=== PATIENT | female | born 1980 | race Caucasian/White ===

== ENCOUNTER → 2016-04-02 | Outpatient (CLI) | payer BC ==
[~2016-04-02] MED LIST: ACHD5005 PO; BIRTH CONTROL; DCS100C PO; HYDR1TAB75 PO; IBP800T PO; NAPR-243 PO; PRM25T PO; SPRINTEC 28; SPRINTEC PO; TRM50T PO
== END ==
LOC: PREOP 05:58
PROVIDERS: ATTEND Internal Medicine
DX: Z01.818 Encounter for other preprocedural examination (principal); K62.5 Hemorrhage of anus and rectum

== ENCOUNTER 2016-04-04 06:56 | Day surgery (SDC) | payer BC ==
[~2016-04-04] VITALS: Ht 152.4 cm; Wt 68.0 kg
[2016-04-04] MEDS ORDERED: NS IV 1000 ML 1,000 ML IV STA (07:13)
[2016-04-04] MEDS ORDERED: proPOfol 200 MG/20 ML (DIPRIVAN) VIAL IV ONE (07:18)
[2016-04-04] MEDS ORDERED: MIDAZOLAM 2 MG/2 ML (VERSED) VIAL ONE (07:19)
[2016-04-04] MEDS ORDERED: NS IV 1000 ML 1,000 ML ONE (07:25)
--- NOTE | 2016-04-04 07:26 | HISTORY AND PHYSICAL ---
DATE OF ADMISSION: 04/04/2016 DICTATING PHYSICIAN: Dr. Santa Ms. Suarez is a 35-year-old white female referred by Dr. Antonio for consideration for colonoscopy. The patient had been doing relatively well up until 7 days ago when she noted progressive right mid quadrant abdominal pain, it was colicky in nature and it has been present intermittently for the past 7 days. She denies chills, fever, diarrhea or constipation. She has had some intermittent abdominal distention. There is a family history for early colon cancer in this case being her father, who from colon cancer at the age of 49. She had undergone colonoscopy at the age of 27 and it was recommended she again undergo colonoscopy 5 years later. She has been taking p.r.n. ibuprofen that helps a little. She saw Dr. Antonio as she had had a past history of endometriosis. On his evaluation, he did not believe that was a contributing factor. He did obtain a CBC, a chemistry panel and a sedimentation rate that revealed no significant abnormalities and were reviewed by this examiner. PAST SURGICAL HISTORY: Significant for: 1. Total abdominal hysterectomy and oophorectomy. 2. Appendectomy. 3. Cholecystectomy. SOCIAL HISTORY: She works at [employer], one of the local [employer] with no smoking history and only rare alcohol intake. FAMILY HISTORY: Other than her father's colon cancer, her grandfather had a stomach tumor and at the age of 85. She had one uncle who was diagnosed with gastric cancer, underwent surgery at the age of 57 and is still living in his 60s. She is not aware of any other family history for malignancy. She has had no travel out of [place] and no one else has been ill that she has been around. PHYSICAL EXAMINATION: Reveals an anxious appearing white female in mild distress. HEENT EXAMINATION: Unremarkable. Sclera nonicteric. NECK: Revealed no JVD, adenopathy or bruits. CHEST: Clear. CV: Reveals a regular rate and rhythm without murmur, S3 or S4. Blood pressure is 106/66 with a heart rate of 80 and regular and temperature was 98.9. ABDOMEN: Nondistended, soft, supple. There is a right mid quadrant abdominal pain and left lower quadrant abdominal pain to palpation. There is some mild guarding in the right mid quadrant. Bowel sounds are positive. No mass or organomegaly is appreciated. ASSESSMENT/PLAN: Abdominal pain, does somewhat follow the typical outline of the colon raising the possibility of colitis. I should add that she has not had any recent antibiotic exposure. She does report nausea as well but with history of appendectomy, cholecystectomy and total abdominal hysterectomy with oophorectomy. She is advised to continue hormonal replacement. We will initiate Levaquin 500 mg daily and Compazine 10 mg p.o. q.8 h. p.r.n. nausea. I will see her back in one week and at that time discuss setting up colonoscopy when hopefully her symptoms have improved. I thank you for the referral was pleasant lady. Sincerely, Her electronic medical record was reviewed. 30 minutes of ojaq-wi-mjom care time was spent, another 10 minutes in review and another 10 to 15 minutes of staff time in setting up colonoscopy and going over prep instructions. Job ID: [id number] Dictated Date: 03/24/2016 18:02:00 Neuropsychology Medical Consultant Date: 03/25/2016 08:25:24/bashir
--- NOTE | 2016-04-04 07:28 | HISTORY AND PHYSICAL ---
DICTATING PHYSICIAN: Dr. Santa ADDENDUM: Addendum to the report dictated 03/24/2016 DATE OF ADMISSION: 04/04/2016 Mrs. Suarez was seen again for follow-up of nausea, abdominal pain and intermittent bright red blood per rectum. She is originally referred by Dr. Antonio. I saw her on the originally. At that time she was having bilateral lower quadrant abdominal pain and was having some chills and low-grade temperature. She was given a round of Levaquin 7 days. She had some initial improvement in her symptoms but last night again had bad abdominal pain, bilateral. Dr. Antonio had evaluated her and did not feel that there was anything from a pelvic standpoint going on. She has not noted any further rectal bleeding and the diarrhea has resolved. Her pain remains crampy in etiology. Her appetite has improved and she has been able to maintain her weight which was unchanged today at 145.4. She denied any lightheadedness, dizziness, chest pain, shortness of breath, or night sweats. PHYSICAL EXAMINATION: Reveals an anxious white female in mild distress. CHEST: Clear. CV: Reveals a revealed a regular rate and rhythm without murmur, S3 or S4. Blood pressure was 100/70, temperature was 98.8, heart rate was 80 and regular. ABDOMEN: Nondistended. Mild bilateral lower quadrant discomfort to palpation was present; it is less than one week ago. No rebound or guarding was noted. No mass or organomegaly was noted. EXTREMITIES: Reveal no cyanosis, clubbing, or edema. ASSESSMENT: For evaluation of ongoing abdominal discomfort. The patient was set-up for colonoscopy on 04/04. Because of her anxiety and discomfort I have significant concerns that she would have significant difficulty getting this done under conscious sedation protocol so she is being set-up under anesthesia with Diprivan. This was discussed with the patient. We will initiate split dose Kraus-prep the day before the procedure and she will continue to abstain from aspirin and nonsteroidal medication in the interim. Sincerely, Dusty Santa Job ID: [id number] Dictated Date: 04/02/2016 21:03:00 Welt Wheeler Date: 04/03/2016 10:17:42/geraldine
[2016-04-04 07:44] VITALS: BP 115/83
--- NOTE | 2016-04-04 07:46 | Pre-Op Note & Conscious Sedat ---
Pre-Operative Progress Note H&P Reviewed The H&P was reviewed, patient examined and no changes noted. Date H&P Reviewed: Apr 04, 2016 Time H&P Reviewed: 07:45 Conscious Sedation Pre-Proced ASA Class: 2 Airway Mallampati Classification: (kletsel dehe wintun appropriate class) I. II. III, IV Lungs Heart ASA score ASA 1: a normal healthy patient ASA 2: a patient with a mild systemic disease (mid diabetes, controlled hypertension, obesity ASA 3: a patient with a severe systemic disease that limits activity (angina , COPD, prior Myocardial infarction) ASA 4: a patient with an incapacitating disease that is a constant threat to life (CHF, renal failure) ASA 5: a moribund patient not expected to survive 24 hrs. (ruptured aneurysm) ASA 6: a declared brain patient whose organs are being harvested. For emergent operations, add the letter E after the classification Grade 2 Sedation Plan: Analgesia, Amnesia, Plan communicated to team members, Discussed options with patient/fam, Discussed risks with patient/fam Note The patient is an appropriate candidate to undergo the planned procedure, sedation, and anesthesia. The patient immediately re-assessed prior to indication. JULIENNE GREER MD Apr 04, 2016 07:46
[2016-04-04] MEDS ORDERED: LIDOCAINE JELLY 2% (XYLOCAINE) 5 ML TUBE ONE (08:03)
[2016-04-04] MEDS ORDERED: LIDOCAINE JELLY 2% (XYLOCAINE) 5 ML TUBE TOP ONE (08:15)
[2016-04-04 08:45] VITALS: BP 131/81
[2016-04-04 09:10] VITALS: BP 112/77
[2016-04-04 10:10] VITALS: BP 112/77
--- NOTE | 2016-04-07 10:11 | PROCEDURE REPORT ---
PROCEDURE PHYSICIAN: JULIENNE GREER DATE OF PROCEDURE: 04/04/2016 COLONOSCOPY SUMMARY: INDICATION FOR THE PROCEDURE: Abdominal pain with intermittent rectal bleeding. PROCEDURE: The patient was placed in left lateral decubitus position. Due to extreme anxiety and significant abdominal discomfort to palpation, the patient did undergo Diprivan sedation. Despite this, without having to employ significant scope pressure, we did have to stop several times even though the patient appeared to be sedated, due to waking up during the procedure, requiring more anesthetic to finish the procedure. There was no way that this could have been done under conscious sedation protocol, indicative of an irritable bowel type response to air insufflation and colonic manipulation. Digital rectal evaluation was performed prior to the procedure and no abnormalities were noted to digital inspection of the anal canal or distal rectal vault. The colonoscope was then inserted into the rectum and under direct visualization advanced to the cecum. The terminal ileum was intubated and distal 10 cm of terminal ileum were inspected. Quality of the prep was good. FINDINGS: There was no evidence for internal or external hemorrhoids and the rectum was unremarkable. A biopsy was obtained and submitted for histopathology for evaluation of microscopic colitis due to history of abdominal pain and diarrhea. Present in the rectosigmoid junction was a diminutive polyp, which was biopsied, ablated, and submitted for histopathology. No evidence for diverticulum was noted. No other abnormalities were noted in the colon or terminal ileum with no evidence for inflammatory change. No evidence for blood in the colon or terminal ileum was noted either. ASSESSMENT: Normal colonoscopy including the distal 10 cm of the terminal ileum, except for a small hyperplastic appearing polyp noted in at the rectosigmoid junction was biopsied and ablated, and submitted for histopathology. The patient did have an irritable bowel type response to air insufflation and colonic manipulation. Irritable issues were discussed with the patient. She does have a prescription for Levsin/SL that she can use on a p.r.n. basis for cramping. She was reassured about today's findings. There is a biopsy pending for evaluation for microscopic colitis. If findings are present, I will take the liberty of having her return to see me to discuss treatment options for microscopic colitis, likely in the form of Entocort therapy for 3 months and then tapering off. Sincerely, Job ID: [id number] Dictated Date: 04/04/2016 10:57:06 Slag Wheeler Date: 04/07/2016 10:03:42 / tbk MTDD
== END 2016-04-04 10:10 | disposition home or self-care (01) ==
LOC: ENDO 06:56
PROVIDERS: ATTEND Internal Medicine
DX: K63.5 Polyp of colon (principal); R19.7 Diarrhea, unspecified; Z80.0 Family history of malignant neoplasm of digestive organs
CPT/HCPCS: 88305

== ENCOUNTER 2016-09-20 23:21 | Emergency (ER) | payer BC ==
[~2016-09-20] VITALS: Ht 152.4 cm; Wt 59.0 kg
[2016-09-20] MEDS ORDERED: fentaNYL INJECTION 100 MCG/2 ML AMP IVP STA (23:37)
[2016-09-20] MEDS ORDERED: NS IV 1000 ML 1,000 ML IV STA (23:37)
--- NOTE | 2016-09-20 23:56 | ED Abdominal Pain ---
General Chief Complaint: Abdominal/GI Problems Stated Complaint: HEAD AB PAIN Nursing Triage Note: c/o abdomen pain with headache since 183 Sepsis Screen: No Definite Risk Source of Information: Patient Exam Limitations: No Limitations History of Present Illness Time Seen By Provider: 23:30 Initial Comments Here with report of abdominal pain that is just below the umbilicus and headache posterior that have been going on since about 630 tonight. Denies fever or chills. She took 4 ibuprofen at that time and that did not help her pain. She was at work at that time when it started and ultimately had to leave work at 930. She took a bath and was not feeling better so presented to the ER for further evaluation. She does have history of previous cholecystectomy, appendectomy and complete hysterectomy with oophorectomy. Denies bowel or bladder dysfunction and/or diarrhea. Timing/Duration: 4-6 Hours Severity/Quality: Moderate, Sharp Location: Periumbilical Radiation: No Radiation Activities at Onset: None Modifying Factors: Worsens With Eating, Worsens With Movement, Improves With Resting Associated Symptoms: No Back Pain, No Chest Pain, No Fever/Chills, Headache, No Nausea/Vomiting, No Shortness of Air, No Weakness Allergies and Home Medications Allergies Coded Allergies: ondansetron (Unverified Allergy, Unknown, VEIN TURNED RED, 01/19/15) Home Medications No Active Prescriptions or Reported Meds Review of Systems Constitutional: see HPI, No chills, No fever EENTM: No Symptoms Reported Respiratory: No Symptoms Reported Cardiovascular: No Symptoms Reported, Denies Chest Pain, Denies Lightheadedness Gastrointestinal: Abdominal Pain, Denies Constipated, Denies Diarrhea, Denies Nausea, Denies Vomiting Genitourinary: No Symptoms Reported Musculoskeletal: no symptoms reported Skin: no symptoms reported Psychiatric/Neurological: See HPI, Headache, Denies Weakness All Other Systems Reviewed Negative Unless Noted: Yes Past Xjjedfu-Mstpwr-Tmnhjs Hx Patient Social History Alcohol Use: Denies Use Recreational Drug Use: No Recent Foreign Travel: No Contact w/Someone Who Travel: No Recent Infectious Disease Expo: No Recent Hopitalizations: No Immunizations Up To Date Tetanus Booster (TDap): Less than 5yrs Surgeries HX Surgeries: Yes Surgeries: Appendectomy, Gallbladder, Hysterectomy Respiratory Hx Respiratory Disorders: No Cardiovascular Hx Cardiac Disorders: No Neurological Hx Neurological Disorders: No Reproductive System Hx Reproductive Disorders: Yes (DUB, CHRONIC PELVIC PAIN) Sexually Transmitted Disease: No RAG BALER History: Hysterectomy Genitourinary Hx Genitourinary Disorders: No Gastrointestinal Hx Gastrointestinal Disorders: No Musculoskeletal Hx Musculoskeletal Disorders: No Endocrine Hx Endocrine Disorders: No HEENT HX ENT Disorders: No Blood Transfusions Hx Blood Disorders: No Reviewed Nursing Assessment Reviewed/Agree w Nursing PMH: Yes Family Medical History Significant Family History: No Pertinent Family Hx Physical Exam Vital Signs VS - Last 72 Hours, by Label 09/20/16 23:33 Temp 97.0 Pulse 65 Resp 8 B/P (MAP) 127/91 Pulse Ox 98 Capillary Refill : Less Than 3 Seconds General Appearance: WD/WN, no apparent distress HEENT: PERRL/EOMI, pharynx normal Neck: full range of motion, supple Respiratory: lungs clear, normal breath sounds Cardiovascular: regular rate, rhythm, no murmur Gastrointestinal: soft, no organomegaly, No guarding, No rebound, tenderness ( periumbilical region just below the umbilicus.) Extremities: non-tender, normal inspection Back: normal inspection, no CVA tenderness, no vertebral tenderness Neurologic/Psychiatric: alert, oriented x 3 Skin: normal color, warm/dry Progress/Results/Core Measures Results/Orders Lab Results Laboratory Tests Test 09/20/16 23:35 09/20/16 23:45 Range/Units White Blood Count 8.6 4.3-11.0 10^3/uL Red Blood Count 4.50 4.35-5.85 10^6/uL Hemoglobin 13.8 11.5-16.0 G/DL Hematocrit 39 35-52 % Mean Corpuscular Volume 88 80-99 FL Mean Corpuscular Hemoglobin 31 25-34 PG Mean Corpuscular Hemoglobin Concent 35 32-36 G/DL Red Cell Distribution Width 12.6 10.0-14.5 % Platelet Count 350 130-400 10^3/uL Mean Platelet Volume 9.4 7.4-10.4 FL Neutrophils (%) (Auto) 56 42-75 % Lymphocytes (%) (Auto) 35 12-44 % Monocytes (%) (Auto) 8 0-12 % Eosinophils (%) (Auto) 1 0-10 % Basophils (%) (Auto) 0 0-10 % Neutrophils # (Auto) 4.9 1.8-7.8 X 10^3 Lymphocytes # (Auto) 3.0 1.0-4.0 X 10^3 Monocytes # (Auto) 0.7 0.0-1.0 X 10^3 Eosinophils # (Auto) 0.0 0.0-0.3 10^3/uL Basophils # (Auto) 0.0 0.0-0.1 10^3/uL Amylase Level 38 25-125 U/L Lipase 16 8-78 U/L Urine Color YELLOW Urine Clarity CLEAR Urine pH 5 5-9 Urine Specific [place] 1.025 H 1.016-1.022 Urine Protein 1+ H NEGATIVE Urine Glucose (UA) NEGATIVE NEGATIVE Urine Ketones NEGATIVE NEGATIVE Urine Nitrite NEGATIVE NEGATIVE Urine Bilirubin NEGATIVE NEGATIVE Urine Urobilinogen NORMAL NORMAL MG/DL Urine Leukocyte Esterase 2+ H NEGATIVE Urine RBC (Auto) 1+ H NEGATIVE Urine RBC 0-2 /HPF Urine WBC 2-5 /HPF Urine Squamous Epithelial Cells 0-2 /HPF Urine Crystals NONE /LPF Urine Bacteria TRACE /HPF Urine Casts NONE /LPF Urine Mucus MODERATE H /LPF Urine Culture Indicated NO My Orders Orders - LEROY SERVIN MD Amylase (09/20/16 23:37) Cbc No Diff (09/20/16 23:37) Cbc With Automated Diff (09/20/16 23:37) Lipase (09/20/16 23:37) Ns Iv 1000 Ml (Sodium Chloride 0.9%) (09/20/16 23:37) Saline Lock/Iv-Start (09/20/16 23:37) Fentanyl Injection (Sublimaze Injection (09/20/16 23:37) Ua Culture If Indicated (09/20/16 23:38) Vital Signs/I&O Vital Sign - Last 12Hours 09/20/16 23:33 Temp 97.0 Pulse 65 Resp 8 B/P (MAP) 127/91 Pulse Ox 98 Blood Pressure Mean: 103 Progress Note : Progress Note Seen and evaluated. IV, labs, UA, fentanyl 50 g IV and normal saline 1 L bolus. Monitor patient. 0040: Overall improved. No significant findings on labs or UA. Family at bedside. She states that she feels good enough to go home. Discharged home with return precautions. Patient verbalize understanding instructions and agreement with plan. Departure Impression Impression: Primary Impression: Periumbilical abdominal pain Additional Impression: Headache Qualified Codes: R51 - Headache Disposition: HOME, SELF-CARE Condition: Improved Departure-Patient Inst. Decision time for Depature: 00:43 Referrals: LIZZIE SNYDER MD (PCP/Family) Primary Care Physician Patient Instructions: Acute Abdomen (Belly Pain), Adult (DC), Headache, Adult ( DC) Add. Discharge Instructions: All discharge instructions reviewed with patient and/or family. Voiced understanding. Drink plenty of fluids. Clear liquid diet for the next 12 hours and then advance as tolerated. Off work today. Return for worse pain, fever, vomiting, weakness, breathing problems or other concerns as needed. Continue home medications as directed. You may take Tylenol 1000 mg every 8 hours as needed for pain. You may take ibuprofen, 800 mg every 8 hours as needed for pain. Scripts No Active Prescriptions or Reported Meds Work/School Note: Work Release Form Date Seen in the Emergency Department: Sep 20, 2016 Return to Work: Sep 22, 2016 Restrictions: No Restrictions LEROY SERVIN MD Sep 20, 2016 23:56
[2016-09-21 00:01] LABS: BASOPHILS % (AUTO) 0 % (0-10); EOSINOPHILS % (AUTO) 1 % (0-10); LYMPHOCYTES % (AUTO) 35 % (12-44); MEAN CORPUSCULAR HEMOGLOBIN 31 PG (25-34); MEAN CORPUSCULAR HGB CONC 35 G/DL (32-36); MEAN CORPUSCULAR VOLUME 88 FL (80-99); MEAN PLATELET VOLUME 9.4 FL (7.4-10.4); MONOCYTES # (AUTO) 0.7 X 10^3 (0.0-1.0); MONOCYTES % (AUTO) 8 % (0-12); NEUTROPHILS # (AUTO) 4.9 X 10^3 (1.8-7.8); NEUTROPHILS % (AUTO) 56 % (42-75); PLATELET COUNT 350 10^3/uL (130-400); RED CELL DISTRIBUTION WIDTH 12.6 % (10.0-14.5); WHITE BLOOD COUNT 8.6 10^3/uL (4.3-11.0)
[2016-09-21 00:09] LABS: BILIRUBIN,URINE NEGATIVE (NEGATIVE); KETONES,URINE NEGATIVE (NEGATIVE); LEUKOCYTE ESTERASE ,URINE 2+ (NEGATIVE); NITRITE,URINE NEGATIVE (NEGATIVE); PH,URINE 5 (5-9); PROTEIN,URINE 1+ (NEGATIVE); UROBILINOGEN,URINE NORMAL (NORMAL)
[2016-09-21 00:16] LABS: SQUAMOUS EPITHELIAL CELL,UR 0-2 /HPF
[2016-09-21 00:20] LABS: AMYLASE 38 U/L (25-125); LIPASE 16 U/L (8-78)
[2016-09-21 00:49] VITALS: BP 127/91
== END 2016-09-21 00:49 | disposition home or self-care (01) ==
LOC: EDUNIT# 23:21 → ER 23:23
DX: R10.33 Periumbilical pain (principal); R51 Headache; Z90.49 Acquired absence of other specified parts of digestive tract; Z90.710 Acquired absence of both cervix and uterus
CPT/HCPCS: 36415; 81000; 82150; 83690; 85025; 85027; 96361; 96374

== ENCOUNTER 2017-04-07 08:07 | Emergency (ER) | payer BC ==
[~2017-04-07] VITALS: Ht 152.4 cm; Wt 63.5 kg
--- OUTSIDE RECORDS SUMMARY | 2017-04-07 08:15 | XMS REPORT | Continuity of Care Document ---
Author Author [facility] Organization [facility] Address Unknown Phone Unavailable Allergies Active Description Code Type Severity Reaction Onset Reported/Identified Relationship to Patient Clinical Status Yes ondansetron [id number] Drug Allergy Unknown VEIN TURNED RED 01/19/2015 Medications There is no data. Problems Date Dx Coded Attending Type Code Diagnosis Diagnosed By 06/29/2014 DARCY RAMIREZ DO Ot 882.0 OPEN WOUND OF HAND 06/29/2014 DARCY RAMIREZ DO Ot E000.8 OTHER EXTERNAL CAUSE STATUS 06/29/2014 DARCY RAMIREZ DO Ot E849.0 ACCIDENT IN HOME 06/29/2014 DARCY RAMIREZ DO Ot E920.8 ACC-CUTTING INSTRUM NEC 01/17/2015 JOSEPH PINTO FACC, ALI FACP CCDS Ot R06.02 01/17/2015 JOSEPH PINTO FACC, ALI FACP CCDS Ot R07.89 01/17/2015 CLAUDIO PINTO, LIZZIE R Ot R05 01/17/2015 CLAUDIO PINTO, LIZZIE R Ot R50.9 02/07/2015 BETH HUERTA [employer] Ot R06.02 02/07/2015 BETH HUERTA [employer] Ot R07.89 04/03/2016 JULIENNE GREER MD Ot K62.5 HEMORRHAGE OF ANUS AND RECTUM 04/03/2016 JULIENNE GREER MD Ot Z01.818 ENCOUNTER FOR OTHER PREPROCEDURAL EXAMIN 04/04/2016 JULIENNE GREER MD Ot K63.5 POLYP OF COLON 04/04/2016 JULIENNE GREER MD Ot R19.7 DIARRHEA, UNSPECIFIED 04/04/2016 JULIENNE GREER MD Ot Z80.0 FAMILY HISTORY OF MALIGNANT NEOPLASM OF 04/09/2016 JULIENNE GREER MD Ot K63.5 POLYP OF COLON 04/09/2016 JULIENNE GREER MD Ot R19.7 DIARRHEA, UNSPECIFIED 04/09/2016 JULIENNE GREER MD Ot Z80.0 FAMILY HISTORY OF MALIGNANT NEOPLASM OF 2016 JULIENNE GREER MD Ot K63.5 POLYP OF COLON 2016 JULIENNE GREER MD Ot R19.7 DIARRHEA, UNSPECIFIED 2016 JULIENNE GREER MD Ot Z80.0 FAMILY HISTORY OF MALIGNANT NEOPLASM OF 09/20/2016 JOSEPH PINTO [facility], ALI FACP CCDS Ot R06.02 SHORTNESS OF BREATH 09/20/2016 JOSEPH PINTO [facility], ALI FACP CCDS Ot R07.89 OTHER CHEST PAIN 09/20/2016 CLAUDIO PINTO, LIZZIE R Ot R05 COUGH 09/20/2016 CLAUDIO PINTO LIZZIE R Ot R50.9 FEVER, UNSPECIFIED 09/20/2016 BETH HUERTA [employer] Ot R06.02 SHORTNESS OF BREATH 09/20/2016 BETH HUERTA [employer] Ot R07.89 OTHER CHEST PAIN 09/20/2016 JULIENNE GREER MD Ot K62.5 HEMORRHAGE OF ANUS AND RECTUM 09/20/2016 JULIENNE GREER MD, Ot Z01.818 ENCOUNTER FOR OTHER PREPROCEDURAL EXAMIN 09/21/2016 LEROY SERVIN MD, Ot R10.33 PERIUMBILICAL PAIN 09/21/2016 LEROY SERVIN MD, Ot R51 HEADACHE 09/21/2016 LEROY SERVIN MD, Ot Z90.49 ACQUIRED ABSENCE OF OTHER SPECIFIED PART 09/21/2016 LEROY SERVIN MD, Ot Z90.710 ACQUIRED ABSENCE OF BOTH CERVIX AND UTER Procedures There is no data. Results Test Result Range Complete blood count (CBC) with automated white blood cell (WBC) differential - 09/20/16 23:35 Blood leukocytes automated count (number/volume) 8.6 10*3/uL 4.3-11.0 Blood erythrocytes automated count (number/volume) 4.50 10*6/uL 4.35-5.85 Venous blood hemoglobin measurement (mass/volume) 13.8 g/dL 11.5-16.0 Blood hematocrit (volume fraction) 39 % 35-52 Automated erythrocyte mean corpuscular volume 88 [foz_us] 80-99 Automated erythrocyte mean corpuscular hemoglobin (mass per erythrocyte) 31 pg 25-34 Automated erythrocyte mean corpuscular hemoglobin concentration measurement ( mass/volume) 35 g/dL 32-36 Automated erythrocyte distribution width ratio 12.6 % 10.0-14.5 Automated blood platelet count (count/volume) 350 10*3/uL 130-400 Automated blood platelet mean volume measurement 9.4 [foz_us] 7.4-10.4 Automated blood neutrophils/100 leukocytes 56 % 42-75 Automated blood lymphocytes/100 leukocytes 35 % 12-44 Blood monocytes/100 leukocytes 8 % 0-12 Automated blood eosinophils/100 leukocytes 1 % 0-10 Automated blood basophils/100 leukocytes 0 % 0-10 Blood neutrophils automated count (number/volume) 4.9 10*3 1.8-7.8 Blood lymphocytes automated count (number/volume) 3.0 10*3 1.0-4.0 Blood monocytes automated count (number/volume) 0.7 10*3 0.0-1.0 Automated eosinophil count 0.0 10*3/uL 0.0-0.3 Automated blood basophil count (count/volume) 0.0 10*3/uL 0.0-0.1 Serum or plasma amylase measurement (enzymatic activity/volume) - 09/20/16 23: 35 Serum or plasma amylase measurement (enzymatic activity/volume) 38 U /L 25-125 Lipase - 09/20/16 23:35 Lipase 16 U/L 8-78 Complete urinalysis with reflex to culture - 09/20/16 23:45 Urine color determination YELLOW NRG Urine clarity determination CLEAR NRG Urine pH measurement by test strip 5 5-9 Specific gravity of urine by test strip 1.025 1.016- 1.022 Urine protein assay by test strip, semi-quantitative 1+ NEGATIVE Urine glucose detection by automated test strip NEGATIVE NEGATIVE Erythrocytes detection in urine sediment by light microscopy 1+ NEGATIVE Urine ketones detection by automated test strip NEGATIVE NEGATIVE Urine nitrite detection by test strip NEGATIVE NEGATIVE Urine total bilirubin detection by test strip NEGATIVE NEGATIVE Urine urobilinogen measurement by automated test strip (mass/volume) NORMAL NORMAL Urine leukocyte esterase detection by dipstick 2+ NEGATIVE Automated urine sediment erythrocyte count by microscopy (number/high power field) [HPF] NRG Automated urine sediment leukocyte count by microscopy (number/high power field ) [HPF] NRG Bacteria detection in urine sediment by light microscopy TRACE NRG Squamous epithelial cells detection in urine sediment by light microscopy 0-2 NRG Crystals detection in urine sediment by light microscopy NONE NRG Casts detection in urine sediment by light microscopy NONE NRG Mucus detection in urine sediment by light microscopy MODERATE NRG Complete urinalysis with reflex to culture NO NRG Encounters ACCT No. Visit Date/Time Discharge Status Pt. Type Provider Facility Loc./Unit Complaint [id number] 09/20/2016 23:23:00 09/21/2016 00:49:00 DIS Emergency LEROY SERVIN MD [facility] ER HEAD AB PAIN [id number] 04/04/2016 06:56:00 04/04/2016 10:10:00 DIS Outpatient JULIENNE GREER MD [facility] ENDO ABD PAIN;RECTAL BLEEDING [id number] 04/02/2016 05:58:00 04/02/2016 23:59:59 CLS Outpatient JULIENNE GREER MD [facility] PREOP ABD PAIN;RECTAL BLEEDING [id number] 01/19/2015 14:07:00 01/19/2015 23:59:59 CLS Outpatient BETH HUERTA [facility] RAD CHEST DISCOMFORT AND SHORTNESS OF BREATH [id number] 01/02/2015 07:20:00 01/02/2015 23:59:59 CLS Outpatient JOSEPH PINTO FACCNELIDA FACP CCDS [facility] CARD SOB, CHEST DISCOMFORT [id number] 01/01/2015 14:49:00 01/01/2015 23:59:59 CLS Outpatient LIZZIE SNYDER MD [facility] RAD FEVER,COUGH [id number] 06/29/2014 19:14:00 06/29/2014 20:07:00 DIS Emergency DARCY RAMIREZ DO [facility] ER L HAND LACERATION [id number] 12/13/2012 10:01:00 12/13/2012 11:43:00 DIS Emergency
[2017-04-07] MEDS ORDERED: diphenhydrAMINE 50 MG/ML INJ (BENADRYL) IV STA (08:37)
[2017-04-07] MEDS ORDERED: PROMETHAZINE INJ 25 MG/ML (PHENERGAN) AMP IVP STA (08:37)
[2017-04-07] MEDS ORDERED: LACTATED RINGERS 1,000 ML IV ONE (08:37)
[2017-04-07] MEDS ORDERED: KETOROLAC 30 MG/ML VIAL IVP STA (08:37)
[2017-04-07] MEDS ORDERED: ORPHENADRINE 60 MG/2 ML (NORFLEX) AMP IV STA (08:37)
--- NOTE | 2017-04-07 08:49 | ED Headache ---
General Chief Complaint: General Problems/Pain Stated Complaint: STOMACH ACHE/HEADACHE/NECK ACHE Nursing Triage Note: ARRIVED VIA AMB TO ROOM 06. COMPLAINS OF RIGHT SIDED NECK PAIN STARTING YESTERDAY TODAY SHE ASLO HAS SEVERE HEAD PAIN AND STOMACH PAIN. DENIES V/D. TOOK IBUPROFEN AT 0330 TODAY. MASK PLACED ON PT. Nursing Sepsis Screen: No Definite Risk Source: patient History of Present Illness Date Seen by Provider: Apr 07, 2017 Time Seen by Provider: 08:25 Initial Comments C/O HEADACHE SINCE 0100 YESTERDAY STATES SHE WOKE UP AT 0100 YESTERDAY WITH RIGHT LATERAL NECK PAIN AND THEN STARTED HAVING HEADACHE. THINKS SHE SLEPT WRONG AND IT STRAINED HER NECK HEADACHE IS FRONTAL ALSO C/O NAUSEA, NO VOMITING NO VISION CHANGES NO PARESTHESIAS OR MOTOR DEFICITS NO ABDOMINAL PAIN NO FEVER NO COUGH/URI SYMPTOMS/SORE THROAT, ETC. NO KNOWN SICK CONTACTS. HAS HISTORY OF HEADACHES AND THIS IS THE SAME. TOOK IBUPROFEN 800 MG TODAY AT 0330 WITHOUT RELIEF. OTHERWISE HAS NOT TAKEN ANYTHING ELSE FOR PAIN. PCP: DR. SNYDER--HAS NOT SEEN FOR A LONG TIME Allergies and Home Medications Allergies Coded Allergies: ondansetron (Unverified Allergy, Unknown, VEIN TURNED RED, 01/19/15) Home Medications No Active Prescriptions or Reported Meds Constitutional: no symptoms reported, No chills, No diaphoresis, No dizziness, No fever Eyes: No Symptoms Reported Ears, Nose, Mouth, Throat: no symptoms reported Respiratory: no symptoms reported Cardiovascular: no symptoms reported Gastrointestinal: see HPI, No abdominal pain, No loss of appetite, nausea, No vomiting Genitourinary: no symptoms reported : No (HYUST) Musculoskeletal: see HPI, neck pain (RIGHT LATERAL NECK) Skin: no symptoms reported Psychiatric/Neurological: See HPI, Headache, Denies Numbness, Denies Paresthesia, Denies Seizure, Denies Tingling, Denies Tremors, Denies Weakness Past Ptuhxmt-Valisx-Fcksdk Hx Patient Social History Recent Foreign Travel: No Contact w/Someone Who Travel: No Recent Infectious Disease Expo: No Recent Hopitalizations: No Immunizations Up To Date Tetanus Booster (TDap): Less than 5yrs Surgeries History of Surgeries: Yes Surgeries: Appendectomy, Gallbladder, Hysterectomy Respiratory History of Respiratory Disorde: No Cardiovascular History of Cardiac Disorders: No Neurological History of Neurological Disord: Yes Neurological Disorders: Headaches /Migraines Reproductive System Hx Reproductive Disorders: Yes (DUB, CHRONIC PELVIC PAIN) 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 Genitourinary History of Genitourinary Disor: No Gastrointestinal History of Gastrointestinal Di: No Musculoskeletal History of Musculoskeletal Dis: No Endocrine History of Endocrine Disorders: No HEENT History of HEENT Disorders: No Cancer History of Cancer: No Psychosocial History of Psychiatric Problem: No Integumentary History of Skin or Integumenta: No Blood Transfusions History of Blood Disorders: No Family Medical History Significant Family History: No Pertinent Family Hx Physical Exam Vital Signs Vital Sign - Last 12Hours 04/07/17 08:13 Temp 98.0 Pulse 99 Resp 18 B/P (MAP) 118/80 (93) Pulse Ox 95 Capillary Refill : Less Than 3 Seconds General Appearance: WD/WN, no apparent distress, other HEENT: PERRL/EOMI, normal ENT inspection, TMs normal, pharynx normal Neck: full range of motion, supple, tender lateral (RIGHT LATERAL SCALENE/ LATERAL CERVICAL MUSCLES) Cardiovascular: normal peripheral pulses, regular rate, rhythm, no murmur Respiratory: normal breath sounds, no respiratory distress, no accessory muscle use Gastrointestinal: normal bowel sounds, non tender, soft, no organomegaly Back: normal inspection Extremities: normal range of motion, non-tender, normal inspection, no pedal edema, no calf tenderness, normal capillary refill Psychiatric: alert, oriented x 3 Crainal Nerves: normal hearing, normal speech, PERRL Coordination/Gait: normal gait Motor/Sensory: no motor deficit, no sensory deficit, no pronator drift Skin: normal color, warm/dry, No rash Progress/Results/Core Measures Results/Orders Lab Results Laboratory Tests Test 04/07/17 08:45 Range/Units White Blood Count 10.2 4.3-11.0 10^3/uL Red Blood Count 4.48 4.35-5.85 10^6/uL Hemoglobin 13.9 11.5-16.0 G/DL Hematocrit 39 35-52 % Mean Corpuscular Volume 86 80-99 FL Mean Corpuscular Hemoglobin 31 25-34 PG Mean Corpuscular Hemoglobin Concent 36 32-36 G/DL Red Cell Distribution Width 12.2 10.0-14.5 % Platelet Count 321 130-400 10^3/uL Mean Platelet Volume 9.0 7.4-10.4 FL Neutrophils (%) (Auto) 88 H 42-75 % Lymphocytes (%) (Auto) 8 L 12-44 % Monocytes (%) (Auto) 4 0-12 % Eosinophils (%) (Auto) 0 0-10 % Basophils (%) (Auto) 0 0-10 % Neutrophils # (Auto) 8.9 H 1.8-7.8 X 10^3 Lymphocytes # (Auto) 0.8 L 1.0-4.0 X 10^3 Monocytes # (Auto) 0.5 0.0-1.0 X 10^3 Eosinophils # (Auto) 0.0 0.0-0.3 10^3/uL Basophils # (Auto) 0.0 0.0-0.1 10^3/uL Neutrophils % (Manual) 82 % Lymphocytes % (Manual) 6 % Monocytes % (Manual) 8 % Eosinophils % (Manual) 0 % Basophils % (Manual) 0 % Band Neutrophils 4 % Blood Morphology Comment NORMAL Sodium Level 136 135-145 MMOL/L Potassium Level 3.6 3.6-5.0 MMOL/L Chloride Level 104 98-107 MMOL/L Carbon Dioxide Level 19 L 21-32 MMOL/L Anion Gap 13 5-14 MMOL/L Blood Urea Nitrogen 17 7-18 MG/DL Creatinine 0.70 0.60-1.30 MG/DL Estimat Glomerular Filtration Rate > 60 BUN/Creatinine Ratio 24 Glucose Level 102 70-105 MG/DL Calcium Level 9.4 8.5-10.1 MG/DL Magnesium Level 2.0 1.8-2.4 MG/DL Total Bilirubin 0.9 0.1-1.0 MG/DL Aspartate Amino Transf (AST/SGOT) 20 5-34 U/L Alanine Aminotransferase (ALT/SGPT) 35 0-55 U/L Alkaline Phosphatase 72 40-136 U/L Total Protein 7.6 6.4-8.2 GM/DL Albumin 4.3 3.2-4.5 GM/DL Micro Results Microbiology 04/07/17 Influenza Types A,B Antigen (BEATA) - Final, Complete My Orders Orders - ARON GODWIN DO Saline Lock/Iv-Start (04/07/17 08:37) Cbc With Automated Diff (04/07/17 08:37) Comprehensive Metabolic Panel (04/07/17 08:37) Magnesium (04/07/17 08:37) Influenza A And B Antigens (04/07/17 08:37) Saline Lock/Iv-Start (04/07/17 08:37) Lactated Ringers (Lr 1000 Ml Iv Solution (04/07/17 08:37) Promethazine Injection (Phenergan Injec (04/07/17 08:37) Ketorolac Injection (Toradol Injection) (04/07/17 08:37) Diphenhydramine Injection (Benadryl Inje (04/07/17 08:37) Orphenadrine Injection (Norflex Injectio (04/07/17 08:37) Manual Differential (04/07/17 08:45) Medications Given in ED Current Medications Medications Dose Ordered Sig/Jaya Route Start Time Stop Time Status Last Admin Dose Admin Lactated Ringer's 1,000 ml @ 0 mls/hr Q0M ONCE IV 04/07/17 08:37 04/07/17 08:39 DC 04/07/17 08:54 1,000 MLS/HR Vital Signs/I&O Vital Sign - Last 12Hours 04/07/17 08:13 Temp 98.0 Pulse 99 Resp 18 B/P (MAP) 118/80 (93) Pulse Ox 95 Blood Pressure Mean: 93 Progress Note : Progress Note MODERATE IMPROVEMENT IN HEADACHE AND NAUSEA. FEELS COMFORTABLE GOING HOME Departure Impression Impression: Primary Impression: Tension headache Additional Impression: RIGHT CERVICAL MUSCLE STRAIN Disposition: 01 HOME, SELF-CARE Condition: Improved Departure-Patient Inst. Referrals: LIZZIE SNYDER MD (PCP/Family) Primary Care Physician Patient Instructions: Cervical Muscle Strain (DC), Neck Stretches, Tension Headache (DC) Add. Discharge Instructions: MOIST HEAT TO NECK AT 20 MINUTE INTERVALS LOTS OF CLEAR LIQUIDS--WATER, BROTH, JELLO, GATORADE FOLLOW UP WITH YOUR DR IN 1-2 DAYS IF NO BETTER All discharge instructions reviewed with patient and/or family. Voiced understanding. Scripts Promethazine HCl (Phenergan) 25 Mg Supp.rect 25 MG RC Q4H for Nausea/Vomiting, #10 SUPP.RECT Prov: ARON GODWIN DO 04/07/17 Orphenadrine Citrate (Orphenadrine Citrate) 100 Mg Tablet.er 100 MG PO BID, #14 TAB FOR MUSCLE SPASMS Prov: ARON GODWIN DO 04/07/17 Ketorolac Tromethamine (Ketorolac Tromethamine) 10 Mg Tablet 10 MG PO Q6H for Pain, #10 TAB Prov: ARON GODWIN DO 04/07/17 Butalb/Acetaminophen/Caffeine (Esgic Capsule) 1 Each Capsule 1-2 EACH PO Q6H Y for HEADACHE, #10 CAP Prov: ARON GODWIN DO 04/07/17 ARON GODWIN DO Apr 07, 2017 08:49
[2017-04-07 08:53] LABS: BASOPHILS % (AUTO) 0 % (0-10); EOSINOPHILS % (AUTO) 0 % (0-10); HEMATOCRIT 39 % (35-52); HEMOGLOBIN 13.9 G/DL (11.5-16.0); LYMPHOCYTES # (AUTO) 0.8 X 10^3 (1.0-4.0); LYMPHOCYTES % (AUTO) 8 % (12-44); MEAN CORPUSCULAR HEMOGLOBIN 31 PG (25-34); MEAN CORPUSCULAR HGB CONC 36 G/DL (32-36); MEAN CORPUSCULAR VOLUME 86 FL (80-99); MONOCYTES # (AUTO) 0.5 X 10^3 (0.0-1.0); MONOCYTES % (AUTO) 4 % (0-12); NEUTROPHILS # (AUTO) 8.9 X 10^3 (1.8-7.8); NEUTROPHILS % (AUTO) 88 % (42-75); PLATELET COUNT 321 10^3/uL (130-400); RED BLOOD COUNT 4.48 10^6/uL (4.35-5.85); RED CELL DISTRIBUTION WIDTH 12.2 % (10.0-14.5); WHITE BLOOD COUNT 10.2 10^3/uL (4.3-11.0)
[2017-04-07 09:16] LABS: ALANINE AMINOTRANSFERASE 35 U/L (0-55); ALBUMIN 4.3 GM/DL (3.2-4.5); ALKALINE PHOSPHATASE 72 U/L (40-136); BAND NEUTROPHILS 4 %; BASOPHILS % (MANUAL) 0 %; BILIRUBIN,TOTAL 0.9 MG/DL (0.1-1.0); BUN/CREATININE RATIO 24; CALCIUM 9.4 MG/DL (8.5-10.1); CARBON DIOXIDE 19 MMOL/L (21-32); CHLORIDE 104 MMOL/L (98-107); EOSINOPHILS % (MANUAL) 0 %; GFR ESTIMATED > 60; GLUCOSE 102 MG/DL (70-105); LYMPHOCYTES % (MANUAL) 6 %; MONOCYTES % (MANUAL) 8 %; NEUTROPHILS % (MANUAL) 82 %; POTASSIUM 3.6 MMOL/L (3.6-5.0); RBC MORPH NORMAL; SODIUM 136 MMOL/L (135-145); TOTAL PROTEIN 7.6 GM/DL (6.4-8.2)
[2017-04-07] MEDS ORDERED: PROM25SU43 RC (09:41)
[2017-04-07] MEDS ORDERED: ORPH100T PO (09:41)
[2017-04-07] MEDS ORDERED: KETO10TA PO (09:41)
[2017-04-07] MEDS ORDERED: BUTA1CAP45 PO (09:41)
[2017-04-07 10:21] VITALS: BP 100/63
== END 2017-04-07 10:21 | disposition home or self-care (01) ==
LOC: EDUNIT# 08:07 → ER 08:10
DX: S16.1XXA Strain of muscle, fascia and tendon at neck level, initial encounter (principal); G44.209 Tension-type headache, unspecified, not intractable; Z88.8 Allergy status to other drugs, medicaments and biological substances; Z90.49 Acquired absence of other specified parts of digestive tract; Z90.710 Acquired absence of both cervix and uterus; X58.XXXA Exposure to other specified factors, initial encounter
CPT/HCPCS: 36415; 80053; 83735; 85007; 85025; 85027; 87804; 96361; 96374; 96375

== ENCOUNTER 2018-03-16 02:00 | Emergency (ER) | payer BC, OTHER ==
[~2018-03-16] VITALS: Ht 152.4 cm; Wt 65.8 kg
[~2018-03-16 02:00] MED LIST changes: +BUTA1CAP45 PO; +KETO10TA PO; +ORPH100T PO; +PROM25SU43 RC
[2018-03-16] MEDS ORDERED: predniSONE 20 MG TAB PO ONE (02:30)
[2018-03-16] MEDS ORDERED: diphenhydrAMINE 25 MG TAB (BENADRYL) PO ONE (02:30)
--- NOTE | 2018-03-16 02:31 | ED General ---
General Chief Complaint: Allergic Reaction Stated Complaint: ALLERGIC RXN Source of Information: Patient Exam Limitations: No Limitations History of Present Illness Date Seen by Provider: Mar 16, 2018 Time Seen by Provider: 02:05 Initial Comments This 37-year-old woman presents to emergency room with primary complaint of rash and itching especially on her lower extremities. She reports history of diarrhea all day yesterday. She has had some sore throat as well. She denies vomiting or diarrhea. She has not taken any medications for her symptoms. She is concerned she is having an allergic reaction. No significant rash or hives are appreciated by this examiner. She states the itching and rash woke her up and she rushed out to the emergency room. She cannot identify any potential triggers for a reaction. Allergies and Home Medications Allergies Coded Allergies: ondansetron (Unverified Allergy, Unknown, VEIN TURNED RED, 01/19/15) Home Medications No Active Prescriptions or Reported Meds Patient Home Medication List Home Medication List Reviewed: Yes Review of Systems Review of Systems Constitutional: no symptoms reported EENTM: see HPI Respiratory: see HPI Cardiovascular: no symptoms reported Gastrointestinal: see HPI Genitourinary: no symptoms reported : No Musculoskeletal: no symptoms reported Skin: see HPI Psychiatric/Neurological: No Symptoms Reported Hematologic/Lymphatic: No Symptoms Reported Immunological/Allergic: no symptoms reported Past Ohfuhgx-Wlutnp-Mzwqhd Hx Past Med/Social Hx: Reviewed Nursing Past Med/Soc Hx Patient Social History Recent Foreign Travel: No Contact w/Someone Who Travel: No Recent Hopitalizations: No Immunizations Up To Date Tetanus Booster (TDap): Less than 5yrs Past Medical History Surgeries: Yes Appendectomy, Gallbladder, Hysterectomy Respiratory: No Cardiac: No Neurological: Yes Headaches /Migraines Reproductive Disorders: Yes (DUB, CHRONIC PELVIC PAIN) 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 0.0oz. [id number]; 29.3 BMI Method:Stated General Appearance: No Apparent Distress, WD/WN HEENT: PERRL/EOMI, TMs Normal, Normal ENT Inspection, Pharynx Normal Neck: Normal Inspection Respiratory: Lungs Clear, Normal Breath Sounds, No Accessory Muscle Use, No Respiratory Distress Cardiovascular: Regular Rate, Rhythm, No Edema, No Murmur Gastrointestinal: Normal Bowel Sounds, Non Tender, Soft Extremity: Normal Inspection, No Pedal Edema Neurologic/Psychiatric: Alert, Oriented x3, No Motor/Sensory Deficits, Other ( Anxious) Skin: Normal Color, Warm/Dry Progress/Results/Core Measures Suspected Sepsis SIRS Temperature: Pulse: Respiratory Rate: Blood Pressure / Mean: Results/Orders My Orders Vital Signs/I&O Capillary Refill : Progress Note : Progress Note No significant rash or hives were noted by this examiner. Apparently rash has improved since leaving the house. Patient was treated with prednisone and Benadryl for the itching. Departure Impression Primary Impression: Pruritic rash Disposition: HOME, SELF-CARE Condition: Improved Departure-Patient Inst. Decision time for Depature: 02:20 Referrals: NO,LOCAL PHYSICIAN (PCP/Family) Primary Care Physician Patient Instructions: Skin Rash (DC) Add. Discharge Instructions: You may take Benadryl (or generic diphenhydramine) up to 50 mg every 4 hours as needed for rash and itching. Try to avoid any exposures that may have caused the rash. If you need a nondrowsy alternative, try loratadine 10 mg daily. Follow-up with your primary care provider if you're not having any improvement or symptoms worsen. Also try using a moisturizing lotion on your legs to prevent dry skin from causing itching. All discharge instructions reviewed with patient and/or family. Voiced understanding. Scripts No Active Prescriptions or Reported Meds RAFA RESTREPO MD Mar 16, 2018 02:31
[2018-03-16 02:39] VITALS: BP 114/89
== END 2018-03-16 02:37 | disposition home or self-care (01) ==
LOC: EDUNIT# 02:00 → ER 02:03
DX: L29.9 Pruritus, unspecified (principal); G43.909 Migraine, unspecified, not intractable, without status migrainosus; Z87.448 Personal history of other diseases of urinary system; Z88.8 Allergy status to other drugs, medicaments and biological substances; Z90.49 Acquired absence of other specified parts of digestive tract; Z90.710 Acquired absence of both cervix and uterus
CPT/HCPCS: 99283

== ENCOUNTER 2019-01-31 04:25 | Emergency (ER) | payer BC ==
[~2019-01-31] VITALS: Ht 152 cm; Wt 68.3 kg
[2019-01-31] MEDS ORDERED: NS IV 1000 ML 1,000 ML IV ONE (04:38)
[2019-01-31] MEDS ORDERED: fentaNYL INJECTION 100 MCG/2 ML AMP IVP ONE (04:45)
[2019-01-31 04:49] LABS: BASOPHILS % (AUTO) 0 % (0-10); EOSINOPHILS # (AUTO) 0.1 10^3/uL (0.0-0.3); EOSINOPHILS % (AUTO) 0 % (0-10); HEMATOCRIT 39 % (35-52); HEMOGLOBIN 13.8 G/DL (11.5-16.0); LYMPHOCYTES # (AUTO) 1.5 X 10^3 (1.0-4.0); LYMPHOCYTES % (AUTO) 11 % (12-44); MEAN CORPUSCULAR HEMOGLOBIN 31 PG (25-34); MEAN CORPUSCULAR HGB CONC 36 G/DL (32-36); MEAN CORPUSCULAR VOLUME 86 FL (80-99); MONOCYTES # (AUTO) 1.1 X 10^3 (0.0-1.0); MONOCYTES % (AUTO) 8 % (0-12); NEUTROPHILS % (AUTO) 81 % (42-75); PLATELET COUNT 347 10^3/uL (130-400); RED CELL DISTRIBUTION WIDTH 12.5 % (10.0-14.5); WHITE BLOOD COUNT 13.7 10^3/uL (4.3-11.0)
--- NOTE | 2019-01-31 04:59 | ED General ---
General Chief Complaint: Cough/Cold/Flu Symptoms Stated Complaint: BODY ACHES, SORE THROAT Nursing Triage Note: headache, bodyache, sorethroat Nursing Sepsis Screen: No Definite Risk Source of Information: Patient Exam Limitations: No Limitations History of Present Illness Date Seen by Provider: Jan 31, 2019 Time Seen by Provider: 04:33 Initial Comments This 38-year-old woman presents to the emergency room with complaints of headache, sore throat, generalized myalgia particularly affecting her lower back and thighs, and light sensitivity since yesterday. She denies fever. She denies any respiratory or GI symptoms. She took ibuprofen 1000 mg about 90 minutes prior to arrival. Allergies and Home Medications Allergies Coded Allergies: ondansetron (Unverified Allergy, Unknown, VEIN TURNED RED, 01/19/15) Home Medications No Active Prescriptions or Reported Meds Patient Home Medication List Home Medication List Reviewed: Yes Review of Systems Review of Systems Constitutional: see HPI EENTM: see HPI Respiratory: no symptoms reported Cardiovascular: no symptoms reported Gastrointestinal: no symptoms reported Genitourinary: no symptoms reported : No Musculoskeletal: see HPI Skin: no symptoms reported Psychiatric/Neurological: See HPI Hematologic/Lymphatic: No Symptoms Reported Immunological/Allergic: no symptoms reported Past Jbthtjk-Naamil-Efldzq Hx Past Med/Social Hx: Reviewed Nursing Past Med/Soc Hx Patient Social History Alcohol Use: Denies Use Recreational Drug Use: No Smoking Status: Never a Smoker 2nd Hand Smoke Exposure: No Recent Foreign Travel: No Contact w/Someone Who Travel: No Recent Infectious Disease Expo: No Recent Hopitalizations: No Physical Abuse: No Sexual Abuse: No Mistreated: No Fear: No Immunizations Up To Date Tetanus Booster (TDap): Less than 5yrs Seasonal Allergies Seasonal Allergies: No Past Medical History Surgeries: Yes Appendectomy, Gallbladder, Hysterectomy Respiratory: No Cardiac: No Neurological: Yes Headaches /Migraines : No Reproductive Disorders: Yes (DUB, 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 0.0oz. 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 Skin: Normal Color, Warm/Dry Progress/Results/Core Measures Suspected Sepsis Recent Fever Within 48 Hours: No Infection Criteria Present: None New/Unexplained Altered Menta: No Sepsis Screen: No Definite Risk SIRS Temperature: Pulse: 74 Respiratory Rate: 18 Laboratory Tests 01/31/19 04:40: White Blood Count 13.7H Blood Pressure 127 /81 Mean: 96 Laboratory Tests 01/31/19 04:40: Creatinine 0.78, Platelet Count 347, Total Bilirubin 0.6 Results/Orders Lab Results Laboratory Tests Test 01/31/19 04:40 01/31/19 04:45 Range/Units White Blood Count 13.7 H 4.3-11.0 10^3/uL Red Blood Count 4.51 4.35-5.85 10^6/uL Hemoglobin 13.8 11.5-16.0 G/DL Hematocrit 39 35-52 % Mean Corpuscular Volume 86 80-99 FL Mean Corpuscular Hemoglobin 31 25-34 PG Mean Corpuscular Hemoglobin Concent 36 32-36 G/DL Red Cell Distribution Width 12.5 10.0-14.5 % Platelet Count 347 130-400 10^3/uL Mean Platelet Volume 9.0 7.4-10.4 FL Neutrophils (%) (Auto) 81 H 42-75 % Lymphocytes (%) (Auto) 11 L 12-44 % Monocytes (%) (Auto) 8 0-12 % Eosinophils (%) (Auto) 0 0-10 % Basophils (%) (Auto) 0 0-10 % Neutrophils # (Auto) 11.0 H 1.8-7.8 X 10^3 Lymphocytes # (Auto) 1.5 1.0-4.0 X 10^3 Monocytes # (Auto) 1.1 H 0.0-1.0 X 10^3 Eosinophils # (Auto) 0.1 0.0-0.3 10^3/uL Basophils # (Auto) 0.0 0.0-0.1 10^3/uL Sodium Level 137 135-145 MMOL/L Potassium Level 4.0 3.6-5.0 MMOL/L Chloride Level 106 98-107 MMOL/L Carbon Dioxide Level 20 L 21-32 MMOL/L Anion Gap 11 5-14 MMOL/L Blood Urea Nitrogen 15 7-18 MG/DL Creatinine 0.78 0.60-1.30 MG/DL Estimat Glomerular Filtration Rate > 60 BUN/Creatinine Ratio 19 Glucose Level 104 70-105 MG/DL Calcium Level 10.0 8.5-10.1 MG/DL Corrected Calcium 9.6 8.5-10.1 MG/DL Total Bilirubin 0.6 0.1-1.0 MG/DL Aspartate Amino Transf (AST/SGOT) 21 5-34 U/L Alanine Aminotransferase (ALT/SGPT) 34 0-55 U/L Alkaline Phosphatase 83 40-136 U/L Total Creatine Kinase 61 29-168 U/L C-Reactive Protein High Sensitivity 0.74 H 0.00-0.50 MG/DL Total Protein 7.5 6.4-8.2 GM/DL Albumin 4.5 3.2-4.5 GM/DL Urine Color YELLOW Urine Clarity CLEAR Urine pH 5.5 5-9 Urine Specific [place] 1.010 L 1.016-1.022 Urine Protein NEGATIVE NEGATIVE Urine Glucose (UA) NEGATIVE NEGATIVE Urine Ketones NEGATIVE NEGATIVE Urine Nitrite NEGATIVE NEGATIVE Urine Bilirubin NEGATIVE NEGATIVE Urine Urobilinogen 0.2 < = 1.0 MG/DL Urine Leukocyte Esterase NEGATIVE NEGATIVE Urine RBC (Auto) NEGATIVE NEGATIVE Urine RBC NONE /HPF Urine WBC NONE /HPF Urine Squamous Epithelial Cells RARE /HPF Urine Crystals NONE /LPF Urine Bacteria NEGATIVE /HPF Urine Casts NONE /LPF Urine Mucus NEGATIVE /LPF Urine Culture Indicated NO Micro Results Microbiology 01/31/19 Influenza Types A,B Antigen (BEATA) - Final, Complete My Orders Orders - RAFA RESTREPO MD Influenza A And B Antigens (01/31/19 04:33) Cbc With Automated Diff (01/31/19 04:38) Comprehensive Metabolic Panel (01/31/19 04:38) Creatine Kinase (01/31/19 04:38) Ua Culture If Indicated (01/31/19 04:38) Ed Iv/Invasive Line Start (01/31/19 04:38) Ns Iv 1000 Ml (Sodium Chloride 0.9%) (01/31/19 04:38) Fentanyl Injection (Sublimaze Injection (01/31/19 04:45) Hs C Reactive Protein (01/31/19 05:42) Hydrocodone/Apap 5/325 Tablet (Lortab 5 (01/31/19 06:30) Medications Given in ED Current Medications Medications Dose Ordered Sig/Jaya Route Start Time Stop Time Status Last Admin Dose Admin Acetaminophen/ Hydrocodone Bitart 1 tab ONCE ONCE PO 01/31/19 06:30 01/31/19 06:31 DC 01/31/19 06:28 1 TAB Fentanyl Citrate 50 mcg ONCE ONCE IVP 01/31/19 04:45 01/31/19 04:46 DC 01/31/19 04:47 50 MCG Sodium Chloride 1,000 ml @ 0 mls/hr Q0M ONCE IV 01/31/19 04:38 01/31/19 04:41 DC 01/31/19 04:47 0 MLS/HR Vital Signs/I&O 01/31/19 01/31/19 01/31/19 04:32 04:32 06:29 Temp 36.7 36.7 Pulse 74 65 Resp 18 18 B/P (MAP) 127/81 (96) 114/78 (96) Pulse Ox 98 95 O2 Delivery Room Air Room Air Room Air Capillary Refill : Less Than 3 Seconds Blood Pressure Mean: 96 POS Progress Note #1: Time: 04:53 Progress Note Patient seen and examined. Labs ordered. Fentanyl and IV fluids ordered for symptom management. Influenza screen pending. Progress Note #2: Time: 06:34 Progress Note Patient does not appear septic. She had no fever or tachycardia. CRP was normal. She had already taken 1000 mg of ibuprofen at home. Fentanyl was given for further pain management. She was hydrated with a liter of IV normal saline. Hydrocodone was also given prior to dismissal for further treatment of headache. Symptoms seem to likely be caused by viral illness. Departure Impression Primary Impression: Acute headache Qualified Codes: R51 - Headache Additional Impression: Myalgia Disposition: 01 HOME, SELF-CARE Condition: Improved Departure-Patient Inst. Decision time for Depature: 06:20 Referrals: NO,LOCAL PHYSICIAN (PCP/Family) Primary Care Physician Patient Instructions: Headache, Adult Add. Discharge Instructions: Your symptoms are likely caused by an acute flulike illness. Drink plenty of clear liquids. You may take ibuprofen up to 600 mg every 6 hours as needed and Tylenol (acetaminophen) up to 1000 mg every 6 hours as needed. Return to care if you have worsening symptoms. Rest in a quiet, calm, dark environment for the remainder of the morning. All discharge instructions reviewed with patient and/or family. Voiced understanding. Scripts No Active Prescriptions or Reported Meds RAFA RESTREPO MD Jan 31, 2019 04:59 POS
[2019-01-31 05:10] LABS: BACTERIA,URINE NEGATIVE /HPF; SQUAMOUS EPITHELIAL CELL,UR RARE /HPF
[2019-01-31 05:12] LABS: ALANINE AMINOTRANSFERASE 34 U/L (0-55); ALBUMIN 4.5 GM/DL (3.2-4.5); ALKALINE PHOSPHATASE 83 U/L (40-136); BILIRUBIN,TOTAL 0.6 MG/DL (0.1-1.0); BUN/CREATININE RATIO 19; CARBON DIOXIDE 20 MMOL/L (21-32); CHLORIDE 106 MMOL/L (98-107); CREATINE KINASE 61 U/L (29-168); CREATININE SERUM 0.78 MG/DL (0.60-1.30); GFR ESTIMATED > 60; GLUCOSE 104 MG/DL (70-105); SODIUM 137 MMOL/L (135-145); TOTAL PROTEIN 7.5 GM/DL (6.4-8.2)
[2019-01-31 05:19] LABS: BILIRUBIN,URINE NEGATIVE (NEGATIVE); CLARITY,URINE CLEAR; COLOR,URINE YELLOW; GLUCOSE, URINE (UA) NEGATIVE (NEGATIVE); KETONES,URINE NEGATIVE (NEGATIVE); LEUKOCYTE ESTERASE ,URINE NEGATIVE (NEGATIVE); NITRITE,URINE NEGATIVE (NEGATIVE); PH,URINE 5.5 (5-9); PROTEIN,URINE NEGATIVE (NEGATIVE)
[2019-01-31 06:29] VITALS: BP 114/78
[2019-01-31] MEDS ORDERED: HYDROcodone/APAP 5 MG/325 MG (LORTAB) TAB PO ONE (06:30)
--- OUTSIDE RECORDS SUMMARY | 2019-02-24 14:45 | XMS REPORT | Continuity of Care Document ---
Author Organization Unknown Address Unknown Phone Unavailable Allergies Active Description Code Type Severity Reaction Onset Reported/Identified Relationship to Patient Clinical Status Yes ondansetron [id number] Drug Aller gy Unknown VEIN TURNED RED 01/19/2015 Medications There is no data. Problems Date Dx Coded Attending Type Code Diagnosis Diagnosed By 06/29/2014 DARCY RAMIREZ DO Ot 882.0 OPEN WOUND OF HAND 06/29/2014 DARCY RAMIREZ DO Ot E000.8 OTHER EXTERNAL CAUSE STATUS 06/29/2014 DARCY RAMIREZ DO Ot E849.0 ACCIDENT IN HOME 06/29/2014 DARCY RAMIREZ DO Ot E920.8 ACC-CUTTING INSTRUM NEC 01/17/2015 [facility] Ot R06.02 01/17/2015 [facility]PH [facility] Ot R07.89 01/17/2015 CLAUDIO PINTO, LIZZIE R Ot R05 01/17/2015 CLAUDIO PINTO, LIZZIE R Ot R50. 9 02/07/2015 BETH HUERTA [employer] Ot R06.02 02/07/2015 BETH HUERTA [employer] Ot R07.89 04/03/2016 JULIENNE GREER MD Ot K62. 5 HEMORRHAGE OF ANUS AND RECTUM 04/03/2016 JULIENNE GREER MD Ot Z01.818 ENCOUNTER FOR OTHER PREPROCEDURAL EXAMIN 04/04/2016 JULIENNE GREER MD Ot K63. 5 POLYP OF COLON 04/04/2016 JULIENNE GREER MD Ot R19. 7 DIARRHEA, UNSPECIFIED 04/04/2016 JULIENNE GREER MD Ot Z80. 0 FAMILY HISTORY OF MALIGNANT NEOPLASM OF 04/09/2016 JULIENNE GREER MD Ot K63. 5 POLYP OF COLON 04/09/2016 JULIENNE GREER MD Ot R19. 7 DIARRHEA, UNSPECIFIED 04/09/2016 JULIENNE GREER MD Ot Z80. 0 FAMILY HISTORY OF MALIGNANT NEOPLASM OF 2016 JULIENNE GREER MD Ot K63. 5 POLYP OF COLON 2016 JULIENNE GREER MD Ot R19. 7 DIARRHEA, UNSPECIFIED 2016 JULIENNE GREER MD Ot Z80. 0 FAMILY HISTORY OF MALIGNANT NEOPLASM OF 09/20/2016 JOSEPH PINTO [facility], ALI FACP CCDS Ot R06.02 SHORTNESS OF BREATH 09/20/2016 JOSEPH PINTO [facility], ALI FACP CCDS Ot R07.89 OTHER CHEST PAIN 09/20/2016 CLAUDIO PINTO LIZZIE R Ot R05 COUGH 09/20/2016 RAAD SNYDER MDYD R Ot R50. 9 FEVER, UNSPECIFIED 09/20/2016 BAIMA, BETH L [employer] Ot R06.02 SHORTNESS OF BREATH 09/20/2016 DEANNA BETH L [employer] Ot R07.89 OTHER CHEST PAIN 09/20/2016 JULIENNE GREER MD Ot K62. 5 HEMORRHAGE OF ANUS AND RECTUM 09/20/2016 JULIENNE GREER MD Ot Z01.818 ENCOUNTER FOR OTHER PREPROCEDURAL EXAMIN 09/21/2016 LEROY SERVIN MD Ot R10.33 PERIUMBILICAL PAIN 09/21/2016 LEROY SERVIN MD Ot R51 HEADACHE 09/21/2016 LEROY SERVIN MD Ot Z90.49 ACQUIRED ABSENCE OF OTHER SPECIFIED PART 09/21/2016 LEROY SERVIN MD Ot Z90.710 ACQUIRED ABSENCE OF BOTH CERVIX AND UTER 04/07/2017 JOSEPH PINTO [facility], ALI FACP CCDS Ot R06.02 SHORTNESS OF BREATH 04/07/2017 JOSEPH PINTO [facility], ALI FACP CCDS Ot R07.89 OTHER CHEST PAIN 04/07/2017 CLAUDIO PINTO LIZZIE R Ot R05 COUGH 04/07/2017 CLAUDIO PINTO LIZZIE R Ot R50. 9 FEVER, UNSPECIFIED 04/07/2017 RAVINMA BETH L [employer] Ot R06.02 SHORTNESS OF BREATH 04/07/2017 BAIMA BETH L [employer] Ot R07.89 OTHER CHEST PAIN 04/07/2017 JULIENNE GREER MD Ot K62. 5 HEMORRHAGE OF ANUS AND RECTUM 04/07/2017 JULIENNE GREER MD Ot Z01.818 ENCOUNTER FOR OTHER PREPROCEDURAL EXAMIN 04/07/2017 ARON GODWIN DO Ot G44.209 TENSION-TYPE HEADACHE, UNSPECIFIED, NOT 04/07/2017 CITLALI LU JIMENEZA Lan Ot R51 HEADACHE 04/07/2017 CITLALI ARON JIMENEZ Ot S16.1XX A STRAIN OF MUSCLE, FASCIA AND TENDON AT N 04/07/2017 BATH ARON JIMENEZ K Ot X58.XXX A EXPOSURE TO OTHER SPECIFIED FACTORS, INI 04/07/2017 CITLALI JIMENEZ ARON K Ot Z88.8 ALLERGY STATUS TO OTH DRUG/MEDS/BIOL SUB 04/07/2017 BATH ARON K Ot Z90.49 ACQUIRED ABSENCE OF OTHER SPECIFIED PART 04/07/2017 [facility] ARON K Ot Z90.710 ACQUIRED ABSENCE OF BOTH CERVIX AND UTER 04/09/2017 BATH ARON [place] Ot G44.209 TENSION-TYPE HEADACHE, UNSPECIFIED, NOT 04/09/2017 CITLALI LU JIMENEZA Lan Ot R51 HEADACHE 04/09/2017 CITLALI ARON JIMENEZ Ot S16.1XX A STRAIN OF MUSCLE, FASCIA AND TENDON AT N 04/09/2017 BATH ARON [place] Ot X58.XXX A EXPOSURE TO OTHER SPECIFIED FACTORS, INI 04/09/2017 CITLALI ARON [place] Ot Z88.8 ALLERGY STATUS TO OTH DRUG/MEDS/BIOL SUB 04/09/2017 CITLALI ARON K Ot Z90.49 ACQUIRED ABSENCE OF OTHER SPECIFIED PART 04/09/2017 BATH ARON K Ot Z90.710 ACQUIRED ABSENCE OF BOTH CERVIX AND UTER 03/16/2018 KAYE PINTO, RAFA Van Ot G43.909 MIGRAINE, UNSP, NOT INTRACTABLE, WITHOUT 03/16/2018 KAYE PINTO, RAFA Van Ot L29.9 PRURITUS, UNSPECIFIED 03/16/2018 KAYE PINTO, RAFA Van Ot T78.40XA ALLERGY, UNSPECIFIED, INITIAL ENCOUNTER 03/16/2018 KAYE PINTO, RAFA Van Ot Z87.448 PERSONAL HISTORY OF OTHER DISEASES OF UR 03/16/2018 RAFA RESTREPO MD Ot Z88.8 ALLERGY STATUS TO OTH DRUG/MEDS/BIOL SUB 03/16/2018 RAFA RESTREPO MD Ot Z90.49 ACQUIRED ABSENCE OF OTHER SPECIFIED PART 03/16/2018 RAFA RESTREPO MD Ot Z90.710 ACQUIRED ABSENCE OF BOTH CERVIX AND UTER 03/18/2018 RAFA RESTREPO MD Ot G43.909 MIGRAINE, UNSP, NOT INTRACTABLE, WITHOUT 03/18/2018 RAFA RESTREPO MD Ot L29.9 PRURITUS, UNSPECIFIED 03/18/2018 RAFA RESTREPO MD Ot T78.40XA ALLERGY, UNSPECIFIED, INITIAL ENCOUNTER 03/18/2018 RAFA RESTREPO MD, Ot Z87.448 PERSONAL HISTORY OF OTHER DISEASES OF UR 03/18/2018 RAFA RESTREPO MD, Ot Z88.8 ALLERGY STATUS TO OTH DRUG/MEDS/BIOL SUB 03/18/2018 RAFA RESTREPO MD, Ot Z90.49 ACQUIRED ABSENCE OF OTHER SPECIFIED PART 03/18/2018 RAFA RESTREPO MD Ot Z90.710 ACQUIRED ABSENCE OF BOTH CERVIX AND UTER 01/31/2019 JOSEPH PINTO FACC, ALI FACP CCDS Ot R06.02 SHORTNESS OF BREATH 01/31/2019 JOSEPH PINTO FACC, ALI FACP CCDS Ot R07.89 OTHER CHEST PAIN 01/31/2019 CLAUDIO PINTO, LIZZIE R Ot R05 COUGH 01/31/2019 CLAUDIO PINTO, LIZZIE R Ot R50. 9 FEVER, UNSPECIFIED 01/31/2019 BAIMA BETH L [employer] Ot R06.02 SHORTNESS OF BREATH 01/31/2019 BAISONIA BETH L [employer] TE[employer] Ot R07.89 OTHER CHEST PAIN 01/31/2019 ZOEY PINTO, JULIENNE Hwang Ot K62. 5 HEMORRHAGE OF ANUS AND RECTUM 01/31/2019 ZOEY PINTO, JULIENNE Hwang Ot Z01.818 ENCOUNTER FOR OTHER PREPROCEDURAL EXAMIN 02/05/2019 RAFA RESTREPO MD Ot M79.10 MYALGIA, UNSPECIFIED SITE 02/05/2019 RAFA RESTREPO MD Ot R51 HEADACHE 02/05/2019 RAFA RESTREPO MD Ot Z86.69 PERSONAL HISTORY OF DIS OF THE NERVOUS S 02/05/2019 RAFA RESTREPO MD Ot Z88.8 ALLERGY STATUS TO OTH DRUG/MEDS/BIOL SUB 02/05/2019 RAFA RESTREPO MD, Ot Z90.49 ACQUIRED ABSENCE OF OTHER SPECIFIED PART 02/05/2019 RAFA RESTREPO MD, Ot Z90.710 ACQUIRED ABSENCE OF BOTH CERVIX AND UTER 02/07/2019 RAFA RESTREPO MD, Ot M79.10 MYALGIA, UNSPECIFIED SITE 02/07/2019 RAFA RESTREPO MD, Ot R51 HEADACHE 02/07/2019 RAFA RESTREPO MD, Ot Z86.69 PERSONAL HISTORY OF DIS OF THE NERVOUS S 02/07/2019 RAFA RESTREPO MD, Ot Z88.8 ALLERGY STATUS TO OTH DRUG/MEDS/BIOL SUB 02/07/2019 RAFA RESTREPO MD, Ot Z90.49 ACQUIRED ABSENCE OF OTHER SPECIFIED PART 02/07/2019 RAFA RESTREPO MD, Ot Z90.710 ACQUIRED ABSENCE OF BOTH CERVIX AND UTER Procedures There is no data. Results Test Result Range Complete blood count (CBC) with automate d white blood cell (WBC) differential - 09/20/16 23:35 Blood leukocytes automated count (number/volume) 8.6 10*3/uL 4.3-11.0 Blood erythrocytes automated count (number/volume) 4.50 10*6/uL 4.35-5.85 Venous blood hemoglobin measurement (mass/volume) 13.8 g/dL 11.5-16.0 Blood hematocrit (volume fraction) 39 % 35-52 Automated erythrocyte mean corpuscular volume 88 [ foz_us] 80-99 Automated erythrocyte mean corpuscular h emoglobin (mass per erythrocyte) 31 pg 25-34 Automated erythrocyte mean corpuscular h emoglobin concentration measurement (mass/volume) 35 g/dL 32-36 Automated erythrocyte distribution width ratio 12. 6 % 10.0- 14.5 Automated blood platelet count (count/volume) 350 10*3/uL [...] 10*3 1.0-4.0 Blood monocytes automated count (number/volume) 0. 7 10*3 0.0-1.0 Automated eosinophil count 0.0 10*3/uL 0 .0-0.3 Automated blood basophil count (count/volume) 0.0 10*3/uL 0.0-0.1 Serum or plasma amylase measurement (enz ymatic activity/volume) - 09/20/16 23:35 Serum or plasma amylase measurement (enzymatic activit y/volume) 38 U/L 25-125 Lipase - 09/20/16 23:35 Lipase 16 U/L 8-78 Complete urinalysis with reflex to cultu re - 09/20/16 23:45 Urine color determination YELLOW NRG Urine clarity determination CLEAR NR G Urine pH measurement by test strip 5 5-9 Specific gravity of urine by test strip 1.025 1.016-1.022 Urine protein assay by test strip, semi-quantitative 1+ NEGATIVE Urine glucose detection by automated test strip NE GATIVE NEGATIVE Erythrocytes detection in urine sediment by light micr oscopy 1+ NEGATIVE Urine ketones detection by automated test strip NE GATIVE NEGATIVE Urine nitrite detection by test strip NEGATIVE NEGATIVE Urine total bilirubin detection by test strip NEGA TIVE NEGATIVE Urine urobilinogen measurement by automated test strip (mass/volume) NORMAL NORMAL Urine leukocyte esterase detection by dipstick 2+ NEGATIVE Automated urine sediment erythrocyte cou nt by microscopy (number/high power field) [HPF] NRG Automated urine sediment leukocyte count by microscopy (number/high power field) [HPF] NRG Bacteria detection in urine sediment by light microsco py TRACE NRG Squamous epithelial cells detection in u rine sediment by light microscopy 0-2 NRG Crystals detection in urine sediment by light microsco py NONE NRG Casts detection in urine sediment by light microscopy NONE NRG Mucus detection in urine sediment by light microscopy MODERATE NRG Complete urinalysis with reflex to culture NO NRG Complete blood count (CBC) with automate d white blood cell (WBC) differential - 04/07/17 08:45 Blood leukocytes automated count (number/volume) 10.2 10*3/uL 4.3-11.0 Blood erythrocytes automated count (number/volume) 4.48 10*6/uL 4.35-5.85 Venous blood hemoglobin measurement (mass/volume) 13.9 g/dL 11.5-16.0 Blood hematocrit (volume fraction) 39 % 35-52 Automated erythrocyte mean corpuscular volume 86 [ foz_us] 80-99 Automated erythrocyte mean corpuscular h emoglobin (mass per erythrocyte) 31 pg 25-34 Automated erythrocyte mean corpuscular h emoglobin concentration measurement (mass/volume) 36 g/dL 32-36 Automated erythrocyte distribution width ratio 12. 2 % 10.0- 14.5 Automated blood platelet count (count/volume) 321 10*3/uL 130-400 Automated blood platelet mean volume measurement 9.0 [foz_us] 7.4-10.4 Automated blood neutrophils/100 leukocytes 88 % 42-75 Automated blood lymphocytes/100 leukocytes 8 % 12-44 Blood monocytes/100 leukocytes 4 % 0-12 Automated blood eosinophils/100 leukocytes 0 % 0-10 Automated blood basophils/100 leukocytes 0 % 0-10 Blood neutrophils automated count (number/volume) 8.9 10*3 1.8-7.8 Blood lymphocytes automated count (number/volume) 0.8 10*3 1.0-4.0 Blood monocytes automated count (number/volume) 0. 5 10*3 0.0-1.0 Automated eosinophil count 0.0 10*3/uL 0 .0-0.3 Automated blood basophil count (count/volume) 0.0 10*3/uL 0.0-0.1 Influenza virus A and B antigen detectio n - 04/07/17 08:45 FLU RESULT NEGATIVE FOR INFLUENZA A AND B ANTIGENS BY IA [facility] Comprehensive metabolic panel - 04/07/17 08:45 Serum or plasma sodium measurement (moles/volume) 136 mmol/L 135-145 Serum or plasma potassium measurement (moles/volume) 3.6 mmol/L 3.6-5.0 Serum or plasma chloride measurement (moles/volume) 104 mmol/L 98-107 Carbon dioxide 19 mmol/L 21-32 Serum or plasma anion gap determination (moles/volume) 13 mmol/L 5-14 Serum or plasma urea nitrogen measurement (mass/volume ) 17 mg/dL 7-18 Serum or plasma creatinine measurement (mass/volume) 0.70 mg/dL 0.60-1.30 Serum or plasma urea nitrogen/creatinine mass ratio 24 NRG Serum or plasma creatinine measurement w ith calculation of estimated glomerular filtration rate > NRG Serum or plasma glucose measurement (mass/volume) 102 mg/dL 70-105 Serum or plasma calcium measurement (mass/volume) 9.4 mg/dL 8.5-10.1 Serum or plasma total bilirubin measurement (mass/volu me) 0.9 mg/dL 0.1-1.0 Serum or plasma alkaline phosphatase john surement (enzymatic activity/volume) 72 U/L 40-136 Serum or plasma aspartate aminotransfera se measurement (enzymatic activity/volume) 20 U/L 5-34 Serum or plasma alanine aminotransferase measurement (enzymatic activity/volume) 35 U/L 0-55 Serum or plasma protein measurement (mass/volume) 7.6 g/dL 6.4-8.2 Serum or plasma albumin measurement (mass/volume) 4.3 g/dL 3.2-4.5 Magnesium - 04/07/17 08:45 Magnesium 2.0 mg/dL 1.8-2.4 Blood manual differential performed dete ction - 04/07/17 08:45 Blood monocytes/100 leukocytes 8 % NRG Manual blood segmented neutrophils/100 leukocytes 82 % NRG Blood band neutrophils/100 leukocytes 4 % NRG Manual blood lymphocytes/100 leukocytes 6 % NRG Manual eosinophils/100 leukocytes in nose 0 % NRG Manual blood basophils/100 leukocytes 0 % NRG Blood erythrocyte morphology finding identification NORMAL NRG Complete blood count (CBC) with automate d white blood cell (WBC) differential - 01/31/19 04:40 Blood leukocytes automated count (number/volume) 13.7 10*3/uL 4.3-11.0 Blood erythrocytes automated count (number/volume) 4.51 10*6/uL 4.35-5.85 Venous blood hemoglobin measurement (mass/volume) 13.8 g/dL 11.5-16.0 Blood hematocrit (volume fraction) 39 % 35-52 Automated erythrocyte mean corpuscular volume 86 [ foz_us] 80-99 Automated erythrocyte mean corpuscular h emoglobin (mass per erythrocyte) 31 pg 25-34 Automated erythrocyte mean corpuscular h emoglobin concentration measurement (mass/volume) 36 g/dL 32-36 Automated erythrocyte distribution width ratio 12. 5 % 10.0- 14.5 Automated blood platelet count (count/volume) 347 10*3/uL 130-400 Automated blood platelet mean volume measurement 9.0 [foz_us] 7.4-10.4 Automated blood neutrophils/100 leukocytes 81 % 42-75 Automated blood lymphocytes/100 leukocytes 11 % 12-44 Blood monocytes/100 leukocytes 8 % 0-12 Automated blood eosinophils/100 leukocytes 0 % 0-10 Automated blood basophils/100 leukocytes 0 % 0-10 Blood neutrophils automated count (number/volume) 11.0 10*3 1.8-7.8 Blood lymphocytes automated count (number/volume) 1.5 10*3 1.0-4.0 Blood monocytes automated count (number/volume) 1. 1 10*3 0.0-1.0 Automated eosinophil count 0.1 10*3/uL 0 .0-0.3 Automated blood basophil count (count/volume) 0.0 10*3/uL 0.0-0.1 Comprehensive metabolic panel - 01/31/19 04:40 Serum or plasma sodium measurement (moles/volume) 137 mmol/L 135-145 Serum or plasma potassium measurement (moles/volume) 4.0 mmol/L 3.6-5.0 Serum or plasma chloride measurement (moles/volume) 106 mmol/L 98-107 Carbon dioxide 20 mmol/L 21-32 Serum or plasma anion gap determination (moles/volume) 11 mmol/L 5-14 Serum or plasma urea nitrogen measurement (mass/volume ) 15 mg/dL 7-18 Serum or plasma creatinine measurement (mass/volume) 0.78 mg/dL 0.60-1.30 Serum or plasma urea nitrogen/creatinine mass ratio 19 NRG Serum or plasma creatinine measurement w ith calculation of estimated glomerular filtration rate > NRG Serum or plasma glucose measurement (mass/volume) 104 mg/dL 70-105 Serum or plasma calcium measurement (mass/volume) 10.0 mg/dL 8.5-10.1 Serum or plasma total bilirubin measurement (mass/volu me) 0.6 mg/dL 0.1-1.0 Serum or plasma alkaline phosphatase john surement (enzymatic activity/volume) 83 U/L 40-136 Serum or plasma aspartate aminotransfera se measurement (enzymatic activity/volume) 21 U/L 5-34 Serum or plasma alanine aminotransferase measurement (enzymatic activity/volume) 34 U/L 0-55 Serum or plasma protein measurement (mass/volume) 7.5 g/dL 6.4-8.2 Serum or plasma albumin measurement (mass/volume) 4.5 g/dL 3.2-4.5 CALCIUM CORRECTED 9.6 mg/dL 8.5-10.1 Serum or plasma creatine kinase measurem ent (enzymatic activity/volume) - 01/31/19 04:40 Serum or plasma creatine kinase measurem ent (enzymatic activity/volume) 61 U/L 29-168 Serum or plasma C reactive protein measu rement (mass/volume) - 01/31/19 04:40 Serum or plasma C reactive protein measurement (mass/v olume) 0.74 mg/dL 0.00-0.50 Complete urinalysis with reflex to cultu re - 01/31/19 04:45 Urine color determination YELLOW NRG Urine clarity determination CLEAR NR G Urine pH measurement by test strip 5.5 5-9 Specific gravity of urine by test strip 1.010 1.016-1.022 Urine protein assay by test strip, semi-quantitative NEGATIVE NEGATIVE Urine glucose detection by automated test strip NE GATIVE NEGATIVE Erythrocytes detection in urine sediment by light micr oscopy NEGATIVE NEGATIVE Urine ketones detection by automated test strip NE GATIVE NEGATIVE Urine nitrite detection by test strip NEGATIVE NEGATIVE Urine total bilirubin detection by test strip NEGA TIVE NEGATIVE Urine urobilinogen measurement by automated test strip (mass/volume) 0.2 mg/dL < = 1.0 Urine leukocyte esterase detection by dipstick NEG ATIVE NEGATIVE Automated urine sediment erythrocyte cou nt by microscopy (number/high power field) NONE NRG Automated urine sediment leukocyte count by microscopy (number/high power field) NONE NRG Bacteria detection in urine sediment by light microsco py NEGATIVE NRG Squamous epithelial cells detection in u rine sediment by light microscopy RARE NRG Crystals detection in urine sediment by light microsco py NONE NRG Casts detection in urine sediment by light microscopy NONE NRG Mucus detection in urine sediment by light microscopy NEGATIVE NRG Complete urinalysis with reflex to culture NO NRG Influenza virus A and B antigen detectio n - 01/31/19 05:35 FLU RESULT NEGATIVE FOR INFLUENZA A AND B ANTIGENS BY IA NRG Encounters ACCT No. Visit Date/Time Discharge Status Pt. Type Provider Facility Loc./Unit Complaint [id number] 01/31/2019 04:28:00 019 06:32:00 DIS Outpatient RAFA RESTREPO MD [facility] ER BODY ACHES, SOR E THROAT [id number] 03/16/2018 02:03:00 019 02:37:00 DIS Emergency RAFA RESTREPO MD [facility] ER ALLERGIC RXN [id number] 04/07/2017 08:10:00 018 10:21:00 DIS Emergency CITLALI LU JIMENEZA K [facility] ER STOMACH ACHE/HEADACHE/N DONYA ACHE [id number] 09/20/2016 23:23:00 017 00:49:00 DIS Emergency LEROY SERVIN MD [facility] ER HEAD AB PAIN [id number] 04/04/2016 06:56:00 017 10:10:00 DIS Outpatient JULIENNE GREER MD [facility] ENDO ABD PAIN;RECTAL BLEEDIN G [id number] 04/02/2016 05:58:00 017 23:59:59 CLS Outpatient JULIENNE GREER MD [facility] PREOP ABD PAIN;RECTAL BLEEDIN G [id number] 01/19/2015 14:07:00 015 23:59:59 CLS Outpatient BETH HUERTA [facility] RAD CHEST DISCOMFOR T AND SHORTNESS OF BREATH [id number] 01/02/2015 07:20:00 015 23:59:59 CLS Outpatient JOSEPH PINTO FACC, NELIDA MONROE CC DS [facility] CARD SOB, CHEST DISCOMFORT [id number] 01/01/2015 14:49:00 015 23:59:59 CLS Outpatient LIZZIE SNYDER MD [facility] RAD FEVER,COUGH [id number] 06/29/2014 19:14:00 015 20:07:00 DIS Emergency DARCY RAMIREZ DO [facility] ER L HAND LACERATION [id number] 12/13/2012 10:01:00 013 11:43:00 DIS Emergency
== END 2019-01-31 06:32 | disposition home or self-care (01) ==
LOC: EDUNIT# 04:25 → ER 04:28
DX: R51 Headache (principal); M79.10 Myalgia, unspecified site; Z86.69 Personal history of other diseases of the nervous system and sense organs; Z88.8 Allergy status to other drugs, medicaments and biological substances; Z90.49 Acquired absence of other specified parts of digestive tract; Z90.710 Acquired absence of both cervix and uterus
CPT/HCPCS: 36415; 80053; 81000; 82550; 85025; 86141; 87804; 96361; 96374